=== PATIENT | male | born 1935 | race Caucasian/White ===

== ENCOUNTER 2017-08-23 14:36 | Outpatient (CLI) | payer MEDICARE | END 2017-08-23 14:37 | disposition home or self-care (01) | LOC: BICRAD 14:36 | PROVIDERS: ATTEND Specialist | DX: R06.00 Dyspnea, unspecified (principal) | CPT/HCPCS: 71046 ==

== ENCOUNTER 2020-09-17 12:33 | Outpatient (CLI) | payer MEDICARE | END 2020-09-17 12:34 | disposition home or self-care (01) | LOC: BICRAD 12:33 | PROVIDERS: ATTEND Internal Medicine Critical Care Medicine | DX: R06.00 Dyspnea, unspecified (principal); R91.8 Other nonspecific abnormal finding of lung field | CPT/HCPCS: 71046 ==

== ENCOUNTER 2022-02-01 05:59 | Day surgery (SDC) | payer MEDICARE ==
[2022-02-01] MEDS ORDERED: Ketamine 50 MG/ML (10ML VIAL) ONE (07:32)
[2022-02-01] MEDS ORDERED: PROPOFOL 20 ML ONE (07:39)
[2022-02-01 11:09] VITALS: BMI 25.2
== END 2022-02-01 10:10 | disposition home or self-care (01) ==
LOC: SDC 05:59
PROVIDERS: ATTEND Internal Medicine Cardiovascular Disease
PROC: B246ZZ4 Ultrasonography of Right and Left Heart, Transesophageal (ICD-10-PCS; principal; 2022-02-01)
PROC: 5A2204Z Restoration of Cardiac Rhythm, Single (ICD-10-PCS; 2022-02-01)
DX: I08.1 Rheumatic disorders of both mitral and tricuspid valves (principal); Q21.12 Patent foramen ovale; I42.9 Cardiomyopathy, unspecified; I48.91 Unspecified atrial fibrillation; I11.9 Hypertensive heart disease without heart failure; I25.10 Atherosclerotic heart disease of native coronary artery without angina pectoris; E78.00 Pure hypercholesterolemia, unspecified; I87.2 Venous insufficiency (chronic) (peripheral); J44.9 Chronic obstructive pulmonary disease, unspecified; Z86.73 Personal history of transient ischemic attack (TIA), and cerebral infarction without residual deficits; Z87.891 Personal history of nicotine dependence; Z79.01 Long term (current) use of anticoagulants; Z79.02 Long term (current) use of antithrombotics/antiplatelets; Z79.899 Other long term (current) drug therapy
CPT/HCPCS: 92960; 93005; 93010; 93312; J2704

== ENCOUNTER 2022-08-08 19:00 | Inpatient (IN) | payer MEDICARE ==
[2022-08-08 19:49] LABS: Hemoglobin 5.1 g/dL (14.0-18.0); Mean Corpuscular HGB CONC 31.6 g/dL (32.0-36.0); Mean Corpuscular Hemoglobin 28.3 pg (27.0-31.0); Mean Corpuscular Volume 89.8 fl (78.0-98.0); Mean Platelet Volume 7.5 fL (7.4-10.4); Platelet Count 138 10x3/uL (130-400); White Blood Cell (WBC) Count 5.3 10x3/uL (4.8-10.8)
[2022-08-08 20:08] LABS: ALT (SGPT) 152 U/L (8-55); AST (SGOT) 311 U/L (5-34); Alkaline Phosphatase 100 U/L (40-110); Anion Gap 20 mmol/L (10-20); BUN (Urea Nitrogen) 68 mg/dL (8.4-25.7); Bilirubin, Total 0.5 mg/dL (0.2-1.2); Calc. Creatinine Clearance 0 mL/min (70-130); Calcium 8.2 mg/dL (7.8-10.44); Carbon Dioxide 24 mmol/L (23-31); Chloride 99 mmol/L (98-107); Estimated GFR 21; Globulin 2.4 g/dL (2.4-3.5); Glucose 120 mg/dL (83-110); Lipase 51 U/L (8-78); Potassium 4.6 mmol/L (3.5-5.1); Protein, Total 5.4 g/dL (5.8-8.1); Sodium 138 mmol/L (136-145)
[2022-08-08 20:26] LABS: Band 5 % (5-11); Lymphocytes 82 % (21-51); MDiff Complete? YES; Neutrophil 13 % (42-75); Platelet Morphology Comment Appears Adequate; Polychromasia SLIGHT = 2-3 cells (100X) (0-2/hpf)
[2022-08-08] MEDS ORDERED: cefTRIAXone (ROCEPHIN) 2 GM VIAL ONE (20:26)
[2022-08-08] MEDS ORDERED: metroNIDAZOLE 500 MG/100 ML BAG ONE (20:26)
[2022-08-08] MEDS ORDERED: Pantoprazole 40 MG VIAL IVP SCH (22:30)
[2022-08-08] MEDS ORDERED: Acetaminophen 325 MG TAB PO PRN (23:05)
[2022-08-08 23:16] LABS: Lactic Acid 2.7 mmol/L (0.5-2.2)
[2022-08-08 23:21] LABS: Iron 13 ug/dL (65-175); Iron Binding Capacity, Total 239 mcg/dL (261-462)
[2022-08-09] MEDS ORDERED: Pantoprazole 40 MG VIAL ONE (00:06)
[2022-08-09] MEDS: Sodium Chloride 0.9% 1,000 ML IV SCH ×3 (02:18→15:19)
[2022-08-09 03:39] LABS: Hemoglobin 8.4 g/dL (14.0-18.0); Mean Corpuscular HGB CONC 34.5 g/dL (32.0-36.0); Mean Corpuscular Hemoglobin 30.6 pg (27.0-31.0); Mean Corpuscular Volume 88.6 fl (78.0-98.0); Mean Platelet Volume 7.7 fL (7.4-10.4); Platelet Count 84 10x3/uL (130-400); RBC Distribution Width 14.3 % (11.5-14.5); Red Blood Cell (RBC) Count 2.74 mill/uL (4.70-6.10); White Blood Cell (WBC) Count 12.1 10x3/uL (4.8-10.8)
[2022-08-09 04:00] LABS: ALT (SGPT) 109 U/L (8-55); AST (SGOT) 208 U/L (5-34); Acetaminophen Less than 10.0 mcg/mL (10.0-30.0); Albumin 2.8 g/dL (3.4-4.8); Alcohol Less than 10 mg/dL (Less than 10); Alkaline Phosphatase 94 U/L (40-110); Anion Gap 16 mmol/L (10-20); BUN (Urea Nitrogen) 67 mg/dL (8.4-25.7); Bilirubin, Total 1.3 mg/dL (0.2-1.2); Calc. Creatinine Clearance 0 mL/min (70-130); Calcium 7.8 mg/dL (7.8-10.44); Carbon Dioxide 27 mmol/L (23-31); Chloride 103 mmol/L (98-107); Estimated GFR 21; Globulin 2.2 g/dL (2.4-3.5); Glucose 101 mg/dL (83-110); Potassium 3.5 mmol/L (3.5-5.1); Sodium 142 mmol/L (136-145)
[2022-08-09 04:10] LABS: Band 13 % (5-11); Lymphocytes 59 % (21-51); MDiff Complete? YES; Monocytes 1 % (0-10); Myelocyte 1 % (0-0); Neutrophil 26 % (42-75); Platelet Morphology Comment Appears Adequate; RBC Morphology Normal
[2022-08-09] MEDS ORDERED: Sodium Chloride 0.9% 500 ML IV SCH (05:00)
[2022-08-09 05:55] LABS: INR-International Normal Ratio 1.9; PTT 37.8 sec (22.9-36.1); Prothrombin Time 22.4 sec (12.0-14.7)
[2022-08-09 06:14] LABS: Lactic Acid 1.1 mmol/L (0.5-2.2)
[2022-08-09 06:34] LABS: Mean Corpuscular Hemoglobin 30.8 pg (27.0-31.0); Mean Corpuscular Volume 87.8 fl (78.0-98.0); Mean Platelet Volume 7.7 fL (7.4-10.4); Platelet Count 80 10x3/uL (130-400); RBC Distribution Width 14.4 % (11.5-14.5); Red Blood Cell (RBC) Count 2.61 mill/uL (4.70-6.10); White Blood Cell (WBC) Count 14.2 10x3/uL (4.8-10.8)
[2022-08-09 06:49] LABS: Band 17 % (5-11); Lymphocytes 39 % (21-51); MDiff Complete? YES; Monocytes 5 % (0-10); Neutrophil 39 % (42-75); Platelet Morphology Comment Appears Decreased; RBC Morphology Normal; Smudge Cells SLIGHT
[2022-08-09] MEDS: Pantoprazole 40 MG VIAL IVP SCH ×2 (08:36→21:40)
[2022-08-09] MEDS ORDERED: Polyethylene Glycol 3350 17 GM Packet PO SCH (09:00)
[2022-08-09 10:21] LABS: Bilirubin Negative (Negative); Blood, Urine 1+ (Negative); CAUTI Indications for Culture Alt mental st,lethar; Clarity Turbid (Clear); Glucose, Urine (Dipstick) Normal (Negative); Ketone, Urine Negative (Negative); Leukocyte Negative Leu/uL (Negative); Nitrite Negative (Negative); Protein, Urine (Dipstick) 50 mg/dL (Neg-Trace); RBC/HPF 0-3 HPF (0-3); Specific Gravity, Urine 1.013 (1.002-1.036); Squamous Epithelial 0-3 HPF (0-3); Urobilinogen Normal mg/dL (Less than 2); WBC/HPF 0-3 HPF (0-3)
[2022-08-09 10:23] LABS: Bacteria/HPF Rare-Few HPF (None Seen); Urine Culture Reflex No No
[2022-08-09 11:56] LABS: Creatinine, Urine 33.09 mg/dL (63-166)
[2022-08-09] MEDS: Albumin 25% 25 GM/100 ML BOT IVPB SCH (17:24)
[2022-08-09] MEDS ORDERED: Non-Formulary Item 1 EACH (Rosuvastatin Calcium [Rosuvastatin Calcium] 40 MG Tablet) PO SCH (21:00)
[2022-08-09] MEDS: Rosuvastatin 20 MG TAB PO SCH (21:40)
[2022-08-09] MEDS: cefTRIAXone\\ROCEPHIN 2 GM in Sodium Chloride 0.9% 100 ML IVPB SCH (21:41)
[2022-08-10] MEDS: Sodium Chloride 0.9% 1,000 ML IV SCH ×5 (00:32→23:44)
[2022-08-10] MEDS: Albumin 25% 25 GM/100 ML BOT IVPB SCH (01:07)
[2022-08-10 04:25] LABS: Anion Gap 17 mmol/L (10-20); BUN (Urea Nitrogen) 85 mg/dL (8.4-25.7); Calc. Creatinine Clearance 18 mL/min (70-130); Calcium 7.4 mg/dL (7.8-10.44); Carbon Dioxide 24 mmol/L (23-31); Chloride 106 mmol/L (98-107); Estimated GFR 17; Glucose 92 mg/dL (83-110); Potassium 4.2 mmol/L (3.5-5.1); Sodium 143 mmol/L (136-145)
[2022-08-10 04:37] LABS: Hemoglobin 6.8 g/dL (14.0-18.0); Mean Corpuscular HGB CONC 34.5 g/dL (32.0-36.0); Mean Corpuscular Hemoglobin 30.7 pg (27.0-31.0); Mean Platelet Volume 7.7 fL (7.4-10.4); Platelet Count 73 10x3/uL (130-400); RBC Distribution Width 14.9 % (11.5-14.5); Red Blood Cell (RBC) Count 2.22 mill/uL (4.70-6.10); White Blood Cell (WBC) Count 12.3 10x3/uL (4.8-10.8)
[2022-08-10 04:38] LABS: Band 16 % (5-11); Hypochromia SLIGHT = 6-15 cells (100X) (0-5/hpf); Lymphocytes 37 % (21-51); MDiff Complete? YES; Neutrophil 46 % (42-75); Platelet Morphology Comment Appears Decreased; Reactive Lymphocytes 1 % (0-10)
[2022-08-10 08:20] LABS: Albumin 3.1 g/dL (3.4-4.8)
[2022-08-10 08:28] LABS: CK (CPK) 340 U/L (30-200)
[2022-08-10] MEDS: Loratadine 10 MG TAB PO SCH (08:33)
[2022-08-10] MEDS: Montelukast Sodium 10 mg Tablet PO SCH (08:33)
[2022-08-10] MEDS: Pantoprazole 40 MG VIAL IVP SCH ×2 (08:33→20:47)
[2022-08-10] MEDS ORDERED: Polyethylene Glycol 3350 17 GM Packet PO PRN (09:14)
[2022-08-10] MEDS ORDERED: Ipratropium/Albuterol 3 ML NEB NEB PRN (09:14)
[2022-08-10] MEDS: Ipratropium/Albuterol 3 ML NEB NEB SCH ×3 (14:49→22:47)
[2022-08-10] MEDS ORDERED: methylPREDNISolone Sod Succ/PF 125 MG/2 ML VIAL IVP SCH (18:00)
[2022-08-10] MEDS: methylPREDNISolone Sod Succ 40 MG VIAL IVP SCH ×2 (18:28→23:44)
[2022-08-10] MEDS: Mometasone 100 MCG/Formoterol 5 MCG 120 PUFF INHALER INH SCH (18:43)
[2022-08-10 19:07] LABS: Hemoglobin 8.7 g/dL (14.0-18.0)
[2022-08-10] MEDS: Rosuvastatin 20 MG TAB PO SCH (20:47)
[2022-08-10] MEDS: cefTRIAXone\\ROCEPHIN 2 GM in Sodium Chloride 0.9% 100 ML IVPB SCH (20:47)
[2022-08-11] MEDS: Ipratropium/Albuterol 3 ML NEB NEB SCH ×6 (02:32→22:55)
[2022-08-11 04:43] LABS: ALT (SGPT) 52 U/L (8-55); AST (SGOT) 93 U/L (5-34); Albumin 2.7 g/dL (3.4-4.8); Alkaline Phosphatase 87 U/L (40-110); Anion Gap 20 mmol/L (10-20); BUN (Urea Nitrogen) 110 mg/dL (8.4-25.7); Bilirubin, Total 0.5 mg/dL (0.2-1.2); Calc. Creatinine Clearance 13 mL/min (70-130); Carbon Dioxide 18 mmol/L (23-31); Chloride 111 mmol/L (98-107); Estimated GFR 12; Globulin 1.9 g/dL (2.4-3.5); Glucose 107 mg/dL (83-110); Potassium 4.7 mmol/L (3.5-5.1); Protein, Total 4.6 g/dL (5.8-8.1); Sodium 144 mmol/L (136-145)
[2022-08-11 04:44] LABS: Calcium 6.9 mg/dL (7.8-10.44)
[2022-08-11 04:50] LABS: Anisocytosis SLIGHT = 6-15 cells (100X) (0-5/hpf); Band 20 % (5-11); Lymphocytes 37 % (21-51); MDiff Complete? YES; Mean Corpuscular HGB CONC 34.6 g/dL (32.0-36.0); Mean Corpuscular Hemoglobin 30.9 pg (27.0-31.0); Mean Corpuscular Volume 89.2 fl (78.0-98.0); Mean Platelet Volume 8.7 fL (7.4-10.4); Neutrophil 43 % (42-75); Platelet Count 74 10x3/uL (130-400); Platelet Morphology Comment Appears Adequate; Smudge Cells SLIGHT; Toxic Granulation SLIGHT; White Blood Cell (WBC) Count 15.8 10x3/uL (4.8-10.8)
[2022-08-11] MEDS ORDERED: Calcium Chloride 1 GM/10 ML Abboject SYRINGE IVP SCH (05:30)
[2022-08-11] MEDS: methylPREDNISolone Sod Succ 40 MG VIAL IVP SCH ×4 (05:39→23:39)
[2022-08-11] MEDS: Lactated Ringer's 1,000 ML IV SCH ×3 (05:39→20:46)
[2022-08-11] MEDS: Mometasone 100 MCG/Formoterol 5 MCG 120 PUFF INHALER INH SCH ×2 (07:52→18:55)
[2022-08-11] MEDS ORDERED: Calcium Gluconate 9.2 MEQ in Sodium Chloride 0.9% 100 ML IVPB SCH (08:00)
[2022-08-11] MEDS: Pantoprazole 40 MG VIAL IVP SCH ×2 (08:52→20:47)
[2022-08-11] MEDS: Amiodarone 200 MG TAB PO SCH (09:06)
[2022-08-11] MEDS: Cholecalciferol 1,000 UNITS (25 MCG) TAB PO SCH (09:06)
[2022-08-11] MEDS: Ascorbic Acid 500 mg Chewable Tablet PO SCH (09:06)
[2022-08-11] MEDS: guaiFENesin ER 600 MG TAB PO SCH (09:07)
[2022-08-11] MEDS: Montelukast Sodium 10 mg Tablet PO SCH (09:07)
[2022-08-11] MEDS: Multivitamin W/ Minerals 1 TAB PO SCH (09:07)
[2022-08-11] MEDS: Zinc Sulfate 220 MG CAP PO SCH (09:07)
[2022-08-11] MEDS: Loratadine 10 MG TAB PO SCH (09:07)
[2022-08-11] MEDS ORDERED: PROPOFOL 200 MG/20 ML VIAL ONE (10:03)
[2022-08-11] MEDS: cefTRIAXone\\ROCEPHIN 2 GM in Sodium Chloride 0.9% 100 ML IVPB SCH (20:47)
[2022-08-11] MEDS: Rosuvastatin 20 MG TAB PO SCH (20:47)
[2022-08-12] MEDS: Ipratropium/Albuterol 3 ML NEB NEB SCH ×6 (03:18→22:01)
[2022-08-12] MEDS: methylPREDNISolone Sod Succ 40 MG VIAL IVP SCH ×4 (05:43→23:37)
[2022-08-12] MEDS: Lactated Ringer's 1,000 ML IV SCH ×2 (05:43→11:02)
[2022-08-12 07:41] LABS: Hemoglobin 7.4 g/dL (14.0-18.0); Mean Corpuscular HGB CONC 34.8 g/dL (32.0-36.0); Mean Corpuscular Hemoglobin 31.2 pg (27.0-31.0); Mean Corpuscular Volume 89.7 fl (78.0-98.0); Platelet Count 93 10x3/uL (130-400); RBC Distribution Width 15.5 % (11.5-14.5); Red Blood Cell (RBC) Count 2.37 mill/uL (4.70-6.10); White Blood Cell (WBC) Count 22.5 10x3/uL (4.8-10.8)
[2022-08-12 07:48] LABS: Albumin 2.4 g/dL (3.4-4.8); Anion Gap 19 mmol/L (10-20); Bilirubin, Total 0.4 mg/dL (0.2-1.2); Calc. Creatinine Clearance 12 mL/min (70-130); Calcium 7.4 mg/dL (7.8-10.44); Carbon Dioxide 16 mmol/L (23-31); Chloride 113 mmol/L (98-107); Estimated GFR 10; Glucose 120 mg/dL (83-110); Potassium 5.2 mmol/L (3.5-5.1); Protein, Total 4.4 g/dL (5.8-8.1); Sodium 143 mmol/L (136-145)
[2022-08-12 07:49] LABS: ALT (SGPT) 46 U/L (8-55); AST (SGOT) 87 U/L (5-34); Alkaline Phosphatase 84 U/L (40-110)
[2022-08-12 08:00] LABS: BUN (Urea Nitrogen) 121 mg/dL (8.4-25.7)
[2022-08-12 08:29] LABS: Band 1 % (5-11); Lymphocytes 35 % (21-51); MDiff Complete? YES; Monocytes 1 % (0-10); Neutrophil 63 % (42-75); Platelet Morphology Comment Appears Decreased; Polychromasia SLIGHT = 2-3 cells (100X) (0-2/hpf)
[2022-08-12] MEDS: Mometasone 100 MCG/Formoterol 5 MCG 120 PUFF INHALER INH SCH ×2 (08:33→18:32)
[2022-08-12] MEDS ORDERED: Sodium Bicarbonate 150 MEQ in Dextrose 5% in Water 1,000 ML IV SCH (09:00)
[2022-08-12] MEDS: Amiodarone 200 MG TAB PO SCH (09:33)
[2022-08-12] MEDS: Loratadine 10 MG TAB PO SCH (09:34)
[2022-08-12] MEDS: Multivitamin W/ Minerals 1 TAB PO SCH (09:34)
[2022-08-12] MEDS: Montelukast Sodium 10 mg Tablet PO SCH (09:34)
[2022-08-12] MEDS: Cholecalciferol 1,000 UNITS (25 MCG) TAB PO SCH (09:34)
[2022-08-12] MEDS: Zinc Sulfate 220 MG CAP PO SCH (09:34)
[2022-08-12] MEDS: guaiFENesin ER 600 MG TAB PO SCH (09:34)
[2022-08-12] MEDS: Ascorbic Acid 500 mg Chewable Tablet PO SCH (09:34)
[2022-08-12] MEDS: Pantoprazole 40 MG VIAL IVP SCH ×2 (10:52→21:15)
[2022-08-12] MEDS: Sodium Bicarbonate 150 MEQ in Dextrose 5% in Water 1,000 ML IV SCH (15:37)
[2022-08-12] MEDS: Albumin 25% 25 GM/100 ML BOT IVPB SCH ×2 (16:37→23:37)
[2022-08-12] MEDS: cefTRIAXone\\ROCEPHIN 2 GM in Sodium Chloride 0.9% 100 ML IVPB SCH (21:15)
[2022-08-12] MEDS: Rosuvastatin 20 MG TAB PO SCH (21:16)
[2022-08-13] MEDS: Ipratropium/Albuterol 3 ML NEB NEB SCH ×6 (01:48→21:51)
[2022-08-13] MEDS: methylPREDNISolone Sod Succ 40 MG VIAL IVP SCH ×3 (05:55→17:14)
[2022-08-13 07:09] LABS: Hemoglobin 5.2 g/dL (14.0-18.0); Mean Corpuscular HGB CONC 33.6 g/dL (32.0-36.0); Mean Corpuscular Hemoglobin 29.9 pg (27.0-31.0); Platelet Count 90 10x3/uL (130-400); RBC Distribution Width 15.6 % (11.5-14.5); Red Blood Cell (RBC) Count 1.75 mill/uL (4.70-6.10); White Blood Cell (WBC) Count 22.9 10x3/uL (4.8-10.8)
[2022-08-13 07:13] LABS: Calcium 7.2 mg/dL (7.8-10.44); Carbon Dioxide 19 mmol/L (23-31); Chloride 112 mmol/L (98-107); Glucose 139 mg/dL (83-110); Potassium 5.1 mmol/L (3.5-5.1); Sodium 147 mmol/L (136-145)
[2022-08-13 07:14] LABS: Calc. Creatinine Clearance 11 mL/min (70-130); Estimated GFR 9
[2022-08-13 07:21] LABS: Anion Gap 21 mmol/L (10-20)
[2022-08-13 07:26] LABS: BUN (Urea Nitrogen) 145 mg/dL (8.4-25.7)
[2022-08-13] MEDS: Mometasone 100 MCG/Formoterol 5 MCG 120 PUFF INHALER INH SCH ×2 (07:27→18:40)
[2022-08-13 07:46] LABS: Band 2 % (5-11); Eosinophils 1 % (0-10); Lymphocytes 50 % (21-51); MDiff Complete? YES; Monocytes 1 % (0-10); Neutrophil 46 % (42-75); Platelet Morphology Comment Appears Decreased; Polychromasia MODERATE = 3-4 cells (100X) (0-2/hpf)
[2022-08-13] MEDS: Albumin 25% 25 GM/100 ML BOT IVPB SCH ×2 (08:59→17:14)
[2022-08-13] MEDS ORDERED: Ergocalciferol 1.25 MG(50,000 UNITS) CAP PO SCH (09:00)
[2022-08-13] MEDS: Zinc Sulfate 220 MG CAP PO SCH (09:00)
[2022-08-13] MEDS: guaiFENesin ER 600 MG TAB PO SCH (09:00)
[2022-08-13] MEDS: Montelukast Sodium 10 mg Tablet PO SCH (09:00)
[2022-08-13] MEDS: Amiodarone 200 MG TAB PO SCH (09:00)
[2022-08-13] MEDS: Multivitamin W/ Minerals 1 TAB PO SCH (09:00)
[2022-08-13] MEDS: Loratadine 10 MG TAB PO SCH (09:00)
[2022-08-13] MEDS: Ascorbic Acid 500 mg Chewable Tablet PO SCH (09:00)
[2022-08-13] MEDS: Pantoprazole 40 MG VIAL IVP SCH ×2 (09:01→20:39)
[2022-08-13 09:59] VITALS: BMI 26.3
[2022-08-13] MEDS: Sodium Bicarbonate 150 MEQ in Dextrose 5% in Water 1,000 ML IV SCH (14:12)
[2022-08-13] MEDS ORDERED: GoLYTELY 4,000 ml Bottle PER TUBE SCH (15:30)
[2022-08-13 19:19] VITALS: BP 119/76
[2022-08-13] MEDS: cefTRIAXone\\ROCEPHIN 2 GM in Sodium Chloride 0.9% 100 ML IVPB SCH (20:39)
[2022-08-14] MEDS: Albumin 25% 25 GM/100 ML BOT IVPB SCH ×2 (00:19→08:25)
[2022-08-14] MEDS: methylPREDNISolone Sod Succ 40 MG VIAL IVP SCH ×5 (00:19→23:44)
[2022-08-14 00:40] LABS: Hemoglobin 7.8 g/dL (14.0-18.0); Mean Corpuscular HGB CONC 35.5 g/dL (32.0-36.0); Mean Corpuscular Hemoglobin 31.6 pg (27.0-31.0); Mean Platelet Volume 8.4 fL (7.4-10.4); Platelet Count 85 10x3/uL (130-400); RBC Distribution Width 16.3 % (11.5-14.5); Red Blood Cell (RBC) Count 2.46 mill/uL (4.70-6.10); White Blood Cell (WBC) Count 25.9 10x3/uL (4.8-10.8)
[2022-08-14] MEDS: Ipratropium/Albuterol 3 ML NEB NEB SCH ×6 (02:34→22:11)
[2022-08-14 04:06] LABS: ALT (SGPT) 26 U/L (8-55); AST (SGOT) 45 U/L (5-34); Albumin 3.4 g/dL (3.4-4.8); Alkaline Phosphatase 58 U/L (40-110); Anion Gap 25 mmol/L (10-20); Bilirubin, Total 0.5 mg/dL (0.2-1.2); Calc. Creatinine Clearance 11 mL/min (70-130); Calcium 7.3 mg/dL (7.8-10.44); Carbon Dioxide 19 mmol/L (23-31); Chloride 109 mmol/L (98-107); Estimated GFR 8; Globulin 1.2 g/dL (2.4-3.5); Glucose 114 mg/dL (83-110); Potassium 4.5 mmol/L (3.5-5.1); Protein, Total 4.6 g/dL (5.8-8.1); Sodium 148 mmol/L (136-145)
[2022-08-14 04:15] LABS: Hemoglobin 6.9 g/dL (14.0-18.0); Mean Corpuscular HGB CONC 32.4 g/dL (32.0-36.0); Mean Corpuscular Hemoglobin 28.7 pg (27.0-31.0); Mean Corpuscular Volume 88.6 fl (78.0-98.0); Mean Platelet Volume 8.4 fL (7.4-10.4); Platelet Count 83 10x3/uL (130-400); RBC Distribution Width 16.1 % (11.5-14.5); White Blood Cell (WBC) Count 24.5 10x3/uL (4.8-10.8)
[2022-08-14 04:19] LABS: BUN (Urea Nitrogen) 148 mg/dL (8.4-25.7)
[2022-08-14 05:02] LABS: Band 2 % (5-11); Lymphocytes 59 % (21-51); MDiff Complete? YES; Neutrophil 39 % (42-75); Platelet Morphology Comment Appears Decreased; Smudge Cells SLIGHT
[2022-08-14] MEDS: Mometasone 100 MCG/Formoterol 5 MCG 120 PUFF INHALER INH SCH ×2 (07:21→18:56)
[2022-08-14] MEDS: Sodium Bicarbonate 50 MEQ in Dextrose 5% in Water 1,000 ML IV SCH ×2 (08:24→17:12)
[2022-08-14] MEDS ORDERED: PHENYLEPHRINE-NS 100 MCG/ML 10 ML SYRINGE ONE (09:13)
[2022-08-14] MEDS ORDERED: EPINEPHrine 1 MG/10 ML Abboject SYRINGE ONE (09:13)
[2022-08-14] MEDS ORDERED: PROPOFOL 200 MG/20 ML VIAL ONE (09:13)
[2022-08-14] MEDS: Multivitamin W/ Minerals 1 TAB PO SCH (09:43)
[2022-08-14] MEDS: guaiFENesin ER 600 MG TAB PO SCH (09:43)
[2022-08-14] MEDS: Ascorbic Acid 500 mg Chewable Tablet PO SCH (09:43)
[2022-08-14] MEDS: Zinc Sulfate 220 MG CAP PO SCH (09:44)
[2022-08-14] MEDS ORDERED: Vancomycin HCl 125 MG/5 ML (BATCHED) UDCUP PER TUBE SCH (10:00)
[2022-08-14] MEDS ORDERED: Ondansetron HCl/PF 4 MG/2 ML Vial IVP PRN (10:15)
[2022-08-14] MEDS ORDERED: Promethazine HCl 25 MG/ML VIAL IM PRN (10:15)
[2022-08-14] MEDS: Loratadine 10 MG TAB PO SCH (11:49)
[2022-08-14] MEDS: Montelukast Sodium 10 mg Tablet PO SCH (11:49)
[2022-08-14] MEDS: Pantoprazole 40 MG VIAL IVP SCH ×2 (11:49→20:49)
[2022-08-14] MEDS: Amiodarone 200 MG TAB PO SCH (11:49)
[2022-08-14] MEDS: Vancomycin HCl 125 MG/5 ML (BATCHED) UDCUP PER TUBE SCH ×3 (17:16→23:46)
[2022-08-14 19:33] LABS: Anion Gap 25 mmol/L (10-20); Calc. Creatinine Clearance 11 mL/min (70-130); Calcium 7.4 mg/dL (7.8-10.44); Carbon Dioxide 14 mmol/L (23-31); Chloride 112 mmol/L (98-107); Estimated GFR 8; Glucose 113 mg/dL (83-110); Potassium 4.4 mmol/L (3.5-5.1); Sodium 147 mmol/L (136-145)
[2022-08-14 19:45] LABS: BUN (Urea Nitrogen) 143 mg/dL (8.4-25.7)
[2022-08-14] MEDS: cefTRIAXone\\ROCEPHIN 2 GM in Sodium Chloride 0.9% 100 ML IVPB SCH (20:49)
[2022-08-15] MEDS: Ipratropium/Albuterol 3 ML NEB NEB SCH ×6 (02:10→21:39)
[2022-08-15 04:13] LABS: Hemoglobin 7.7 g/dL (14.0-18.0); Mean Corpuscular Hemoglobin 29.3 pg (27.0-31.0); Mean Corpuscular Volume 88.6 fl (78.0-98.0); Mean Platelet Volume 8.9 fL (7.4-10.4); Platelet Count 117 10x3/uL (130-400); RBC Distribution Width 16.2 % (11.5-14.5); Red Blood Cell (RBC) Count 2.62 mill/uL (4.70-6.10)
[2022-08-15 04:25] LABS: INR-International Normal Ratio 2.1; Prothrombin Time 24.2 sec (12.0-14.7)
[2022-08-15 04:32] LABS: Albumin 3.2 g/dL (3.4-4.8); Anion Gap 26 mmol/L (10-20); Calc. Creatinine Clearance 11 mL/min (70-130); Calcium 7.8 mg/dL (7.8-10.44); Carbon Dioxide 16 mmol/L (23-31); Chloride 109 mmol/L (98-107); Estimated GFR 8; Glucose 142 mg/dL (83-110); Phosphorus 8.7 mg/dL (2.3-4.7); Potassium 4.3 mmol/L (3.5-5.1); Sodium 147 mmol/L (136-145)
[2022-08-15 04:43] LABS: BUN (Urea Nitrogen) 142 mg/dL (8.4-25.7); BUN/Creatinine Ratio 22.87
[2022-08-15 05:51] LABS: Anisocytosis SLIGHT = 6-15 cells (100X) (0-5/hpf); Differential Comment VARIANT LYMPHOCYTES; Lymphocytes 64 % (21-51); MDiff Complete? YES; Monocytes 1 % (0-10); Neutrophil 35 % (42-75); Platelet Morphology Comment Appears Decreased; Polychromasia SLIGHT = 2-3 cells (100X) (0-2/hpf); Smudge Cells MODERATE
[2022-08-15] MEDS: methylPREDNISolone Sod Succ 40 MG VIAL IVP SCH ×2 (06:20→20:39)
[2022-08-15] MEDS: Vancomycin HCl 125 MG/5 ML (BATCHED) UDCUP PER TUBE SCH ×3 (06:21→17:08)
[2022-08-15] MEDS: Mometasone 100 MCG/Formoterol 5 MCG 120 PUFF INHALER INH SCH ×2 (07:19→18:32)
[2022-08-15] MEDS: guaiFENesin ER 600 MG TAB PO SCH (08:34)
[2022-08-15] MEDS: Zinc Sulfate 220 MG CAP PO SCH (08:34)
[2022-08-15] MEDS: Montelukast Sodium 10 mg Tablet PO SCH (08:34)
[2022-08-15] MEDS: Amiodarone 200 MG TAB PO SCH (08:34)
[2022-08-15] MEDS: Loratadine 10 MG TAB PO SCH (08:34)
[2022-08-15] MEDS: Multivitamin W/ Minerals 1 TAB PO SCH (08:34)
[2022-08-15] MEDS: Sodium Bicarbonate 50 MEQ in Dextrose 5% in Water 1,000 ML IV SCH ×2 (08:34→17:08)
[2022-08-15] MEDS: Pantoprazole 40 MG VIAL IVP SCH ×2 (08:35→20:39)
[2022-08-15] MEDS: Ascorbic Acid 500 mg Chewable Tablet PO SCH (08:35)
[2022-08-15] MEDS: Phytonadione 10 MG/ML AMP SC SCH (08:38)
[2022-08-15] MEDS ORDERED: Metolazone 5 MG TAB PER TUBE SCH (09:45)
[2022-08-15] MEDS ORDERED: Meropenem 500 MG in Sodium Chloride 0.9% 100 ML IVPB SCH ×2 (10:00→22:00)
[2022-08-15] MEDS: Albumin 25% 25 GM/100 ML BOT IVPB SCH ×2 (10:54→17:08)
[2022-08-15] MEDS ORDERED: Meropenem 1 GM in Sodium Chloride 0.9% 100 ML IVPB SCH (14:00)
[2022-08-16] MEDS: Sodium Bicarbonate 50 MEQ in Dextrose 5% in Water 1,000 ML IV SCH ×2 (00:18→09:55)
[2022-08-16] MEDS: Vancomycin HCl 125 MG/5 ML (BATCHED) UDCUP PER TUBE SCH ×3 (00:19→14:25)
[2022-08-16] MEDS: Ipratropium/Albuterol 3 ML NEB NEB SCH ×4 (02:26→15:15)
[2022-08-16 08:07] VITALS: TEMP 96.1
[2022-08-16] MEDS: Mometasone 100 MCG/Formoterol 5 MCG 120 PUFF INHALER INH SCH (08:11)
[2022-08-16] MEDS ORDERED: Heparin 1,000 UNITS/ML VIAL ONE (08:46)
[2022-08-16] MEDS ORDERED: Furosemide 40 MG/4 ML VIAL SLOW IVP SCH (09:30)
[2022-08-16] MEDS ORDERED: Metolazone 5 MG TAB PER TUBE SCH (09:30)
[2022-08-16] MEDS: Loratadine 10 MG TAB PO SCH (09:53)
[2022-08-16] MEDS: guaiFENesin ER 600 MG TAB PO SCH (09:53)
[2022-08-16] MEDS: Amiodarone 200 MG TAB PO SCH (09:53)
[2022-08-16] MEDS: Pantoprazole 40 MG VIAL IVP SCH (09:53)
[2022-08-16] MEDS: Ascorbic Acid 500 mg Chewable Tablet PO SCH (09:53)
[2022-08-16] MEDS: methylPREDNISolone Sod Succ 40 MG VIAL IVP SCH (09:53)
[2022-08-16] MEDS: Zinc Sulfate 220 MG CAP PO SCH (09:54)
[2022-08-16] MEDS: Montelukast Sodium 10 mg Tablet PO SCH (09:54)
[2022-08-16] MEDS: Multivitamin W/ Minerals 1 TAB PO SCH (09:54)
[2022-08-16] MEDS ORDERED: Meropenem 500 MG in Sodium Chloride 0.9% 100 ML IVPB SCH (10:00)
[2022-08-16] MEDS: Phytonadione 10 MG/ML AMP SC SCH (10:04)
[2022-08-16 10:13] LABS: ALT (SGPT) 22 U/L (8-55); AST (SGOT) 34 U/L (5-34); Albumin 2.7 g/dL (3.4-4.8); Alkaline Phosphatase 57 U/L (40-110); Anion Gap 25 mmol/L (10-20); Bilirubin, Total 0.4 mg/dL (0.2-1.2); Calc. Creatinine Clearance 10 mL/min (70-130); Calcium 7.5 mg/dL (7.8-10.44); Carbon Dioxide 16 mmol/L (23-31); Chloride 104 mmol/L (98-107); Estimated GFR 7; Globulin 1.4 g/dL (2.4-3.5); Glucose 193 mg/dL (83-110); Potassium 4.2 mmol/L (3.5-5.1); Protein, Total 4.1 g/dL (5.8-8.1); Sodium 141 mmol/L (136-145)
[2022-08-16 10:25] LABS: Phosphorus 9.1 mg/dL (2.3-4.7)
[2022-08-16 10:27] LABS: #Lymphocytes 27.1 thou/uL (1.20-3.40); #Monocytes 0.2 thou/uL (0.11-0.59); #Neutrophils 12.2 thou/uL (1.40-6.50); %Basophils 0.1 % (0.0-1.0); %Lymphocytes 68.2 % (21.0-51.0); %Monocytes 0.5 % (0.0-10.0); %Neutrophils 30.6 % (42.0-75.0); Hemoglobin 4.7 g/dL (14.0-18.0); Manual Diff?? YES; Mean Corpuscular HGB CONC 29.7 g/dL (32.0-36.0); Mean Corpuscular Hemoglobin 27.6 pg (27.0-31.0); Mean Corpuscular Volume 92.9 fl (78.0-98.0); Mean Platelet Volume 11.3 fL (7.4-10.4); Platelet Count 114 10x3/uL (130-400); RBC Distribution Width 18.3 % (11.5-14.5); White Blood Cell (WBC) Count 39.8 10x3/uL (4.8-10.8)
[2022-08-16 11:48] LABS: BUN (Urea Nitrogen) 152 mg/dL (8.4-25.7); BUN/Creatinine Ratio 22.55
[2022-08-16 11:52] LABS: Anisocytosis SLIGHT = 6-15 cells HPF (0-5); Band 1 % (5-11); Burr Cells SLIGHT = 2-5 cells HPF (0-1); Lymphocytes 73 % (21-51); Macrocytosis SLIGHT = 6-15 cells HPF (0-5); Monocytes 3 % (0-10); Neutrophil 22 % (42-75); Ovalocytes SLIGHT = 2-5 cells HPF (0-1); Platelet Morphology Comment Platelets Decreased; Poikilocytosis SLIGHT = 6-15 cells HPF (0-5); Polychromasia SLIGHT = 2-3 cells HPF (0-2); Reactive Lymphocytes 2 % (0-10); Smudge Cells 38.6 %
[2022-08-16 11:53] LABS: MDiff Complete? YES
[2022-08-16] MEDS ORDERED: metroNIDAZOLE 500 MG in Premix Bag 1 BAG IVPB SCH (14:00)
[2022-08-16 14:27] LABS: HBSAB Concentration Less than 8.00 mIU/mL; HBSAg Index 0.22 S/CO (0-0.99); Hep B Core Total Ab Non-Reactive (NonReactive); Hep B Core Total Index 0.05 S/CO (0-0.79); Hep B Surf AB Non-Reactive (NonReactive); Hep B Surf Ag Non-Reactive S/CO (NonReactive); Hep C IgG Ab Non-Reactive S/CO (NonReactive); Hep C Index 0.04 S/CO (0-0.79)
[2022-08-16] MEDS ORDERED: Albumin 25% 100 ML ONE (15:49)
[2022-08-16] MEDS ORDERED: Albumin 5% 0 ML ONE (15:49)
[2022-08-16] MEDS ORDERED: Vancomycin HCl 125 MG/5 ML (BATCHED) UDCUP PER TUBE SCH (18:00)
[2022-08-17] MEDS ORDERED: Metolazone 5 MG TAB PER TUBE SCH (08:30)
== END 2022-08-16 17:27 | disposition expired | DRG 871 ==
LOC: ERS 19:00 → ERHOLD 22:14 → IMCU/EMU 08-09 04:24
PROVIDERS: ADMIT Student in an Organized Health Care Education/Training Program; ATTEND Internal Medicine
PROC: 30233L1 Transfusion of Nonautologous Fresh Plasma into Peripheral Vein, Percutaneous Approach (ICD-10-PCS; principal; 2022-08-08)
PROC: 30233N1 Transfusion of Nonautologous Red Blood Cells into Peripheral Vein, Percutaneous Approach (ICD-10-PCS; 2022-08-08)
PROC: 30233J1 Transfusion of Nonautologous Serum Albumin into Peripheral Vein, Percutaneous Approach (ICD-10-PCS; 2022-08-08)
PROC: 3E03329 Introduction of Other Anti-infective into Peripheral Vein, Percutaneous Approach (ICD-10-PCS; 2022-08-08)
PROC: 0DJ08ZZ Inspection of Upper Intestinal Tract, Via Natural or Artificial Opening Endoscopic (ICD-10-PCS; 2022-08-11)
PROC: 0DBN8ZX Excision of Sigmoid Colon, Via Natural or Artificial Opening Endoscopic, Diagnostic (ICD-10-PCS; 2022-08-14)
PROC: 06HY33Z Insertion of Infusion Device into Lower Vein, Percutaneous Approach (ICD-10-PCS; 2022-08-16)
PROC: 5A1D70Z Performance of Urinary Filtration, Intermittent, Less than 6 Hours Per Day (ICD-10-PCS; 2022-08-16)
DX: A41.9 Sepsis, unspecified organism (principal); J18.9 Pneumonia, unspecified organism; J96.21 Acute and chronic respiratory failure with hypoxia; J69.0 Pneumonitis due to inhalation of food and vomit; N17.0 Acute kidney failure with tubular necrosis; N18.6 End stage renal disease; I42.9 Cardiomyopathy, unspecified; J44.0 Chronic obstructive pulmonary disease with (acute) lower respiratory infection; D62 Acute posthemorrhagic anemia; J44.1 Chronic obstructive pulmonary disease with (acute) exacerbation; K63.3 Ulcer of intestine; D68.8 Other specified coagulation defects; A04.72 Enterocolitis due to Clostridium difficile, not specified as recurrent; E87.21 Acute metabolic acidosis; E87.0 Hyperosmolality and hypernatremia; I48.20 Chronic atrial fibrillation, unspecified; Z66 Do not resuscitate; Z51.5 Encounter for palliative care; I25.10 Atherosclerotic heart disease of native coronary artery without angina pectoris; E78.5 Hyperlipidemia, unspecified; I73.9 Peripheral vascular disease, unspecified; K59.00 Constipation, unspecified; I71.43 Infrarenal abdominal aortic aneurysm, without rupture; K59.09 Other constipation; R57.8 Other shock; E55.9 Vitamin D deficiency, unspecified; E86.9 Volume depletion, unspecified; H91.90 Unspecified hearing loss, unspecified ear; N18.9 Chronic kidney disease, unspecified; K22.70 Barrett's esophagus without dysplasia; E88.09 Other disorders of plasma-protein metabolism, not elsewhere classified; K44.9 Diaphragmatic hernia without obstruction or gangrene; D69.6 Thrombocytopenia, unspecified; R13.12 Dysphagia, oropharyngeal phase; D63.1 Anemia in chronic kidney disease; E87.5 Hyperkalemia; Z99.2 Dependence on renal dialysis; Z87.891 Personal history of nicotine dependence; Z79.01 Long term (current) use of anticoagulants; Z79.899 Other long term (current) drug therapy; Z79.51 Long term (current) use of inhaled steroids; Z86.73 Personal history of transient ischemic attack (TIA), and cerebral infarction without residual deficits; Z99.81 Dependence on supplemental oxygen; Z79.02 Long term (current) use of antithrombotics/antiplatelets
CPT/HCPCS: 36415; 36430; 71045; 74018; 74176; 78278; 80048; 80053; 80069; 80143; 80307; 81001; 82040; 82274; 82306; 82550; 82570; 82728; 83540; 83550; 83605; 83690; 83880; 84145; 84156; 84300; 84484; 84540; 85025; 85060; 85384; 85610; 85730; 86704; 86850; 86900; 86901; 87040; 87324; 87449; 87493; 88305; 90935; 93005; 93306; 94640; 96365; 96368; A9560; C9113; G0257; J0171; J0612; J0696; J1642; J1644; J2185; J2704; J2920; J3430; J3490; J7050; J7070; J7120; J7620; P9016; P9047; P9059